=== PATIENT | female | born 1980 | race African-American/Black ===

== ENCOUNTER 2017-08-05 12:35 | Emergency (ER) | payer MEDICAID ==
[~2017-08-05] VITALS: Ht 162.6 cm; Wt 83.0 kg
[2017-08-05 12:38] VITALS: BP 137/79
[2017-08-05] MEDS ORDERED: ONDANSETRON ODT 4 MG ONE (13:51)
[2017-08-05] MEDS ORDERED: KETOROLAC 30 MG/1 ML ONE (13:51)
[2017-08-05] MEDS ORDERED: ONDANSETRON ODT 4 MG PO ONE (14:00)
[2017-08-05] MEDS ORDERED: KETOROLAC 30 MG/1 ML IM ONE (14:00)
[2017-08-05] MEDS ORDERED: OXYcodone/APAP 5/325MG TABLET ONE (14:29)
[2017-08-05] MEDS ORDERED: OXYcodone/APAP 5/325MG TABLET PO ONE (14:30)
== END 2017-08-05 14:36 | disposition home or self-care (01) ==
LOC: ED 14:20
DX: M54.9 Dorsalgia, unspecified (principal)
CPT/HCPCS: 81003; 96372; 99283; J1885

== ENCOUNTER 2018-06-20 16:25 | Inpatient (IN) | payer MEDICAID ==
[~2018-06-20] VITALS: Ht 162.6 cm; Wt 71.2 kg
[2018-06-20 16:55] LABS: MICROSCOPIC NOT IND
[2018-06-20 17:09] LABS: CULTURE INDICATED? NO
[2018-06-20] MEDS ORDERED: GABA-827 PO (17:09)
[2018-06-20] MEDS ORDERED: IBUP-1623 PO (17:10)
[2018-06-20] MEDS ORDERED: ONDA4TAB10 PO (17:11)
[2018-06-20] MEDS ORDERED: AMIT10TA PO (17:11)
[2018-06-20] MEDS ORDERED: CEFTRIAXONE 250 MG IM ONE (18:00)
[2018-06-20] MEDS ORDERED: KETOROLAC 30 MG/1 ML IVPush ONE (18:00)
[2018-06-20] MEDS ORDERED: ONDANSETRON 2MG/ML, 2ML IVPush ONE (18:00)
[2018-06-20] MEDS ORDERED: FAMOTIDINE 20 MG/2 ML IVP ONE (18:00)
[2018-06-20] MEDS ORDERED: AZITHROMYCIN 500 MG TABLET PO ONE (18:00)
[2018-06-20] MEDS ORDERED: ONDANSETRON ODT 4 MG ONE (18:01)
[2018-06-20] MEDS ORDERED: FAMOTIDINE 20 MG TABLET ONE (18:01)
[2018-06-20] MEDS ORDERED: AZITHROMYCIN 500 MG TABLET ONE (18:01)
[2018-06-20] MEDS ORDERED: KETOROLAC 30 MG/1 ML ONE ×2 (18:01→18:06)
[2018-06-20] MEDS ORDERED: CEFTRIAXONE 250 MG ONE (18:01)
[2018-06-20 18:24] LABS: ALBUMIN 3.8 g/dL (3.4-5.0); ANION GAP 7 mmol/L (5-15); CALCIUM 8.4 mg/dL (8.5-10.1); CHLORIDE 108 mmol/L (98-107)
[2018-06-20 18:27] LABS: ALANINE AMINOTRANSFERASE 40 U/L (12-78); ALKALINE PHOSPHATASE 95 U/L (45-117); BILIRUBIN,TOTAL 0.4 mg/dL (0.2-1.0); CREATININE 1.13 mg/dL (0.55-1.02)
[2018-06-20] MEDS ORDERED: FAMOTIDINE 20 MG TABLET PO ONE (18:30)
[2018-06-20] MEDS ORDERED: ONDANSETRON ODT 4 MG PO ONE (18:30)
[2018-06-20] MEDS ORDERED: KETOROLAC 30 MG/1 ML IM ONE (18:30)
[2018-06-20 18:35] LABS: BASOPHILS # (AUTO) 0.03 x10^3/uL (0-0.1); BASOPHILS % (AUTO) 0 % (0-1); EOSINOPHILS # (AUTO) 0.73 x10^3/uL (0-0.4); EOSINOPHILS % (AUTO) 10 % (1-7); LYMPHOCYTES % (AUTO) 35 % (22-44); MD NO; MEAN CORPUSCULAR HEMOGLOBIN 30.2 pg (27.0-34.8); MEAN CORPUSCULAR HGB CONC 33.3 g/dL (32.4-35.8); MEAN CORPUSCULAR VOLUME 90.6 fL (80-100); MEAN PLATELET VOLUME 9.2 fL (7.4-10.4); MONOCYTES # (AUTO) 0.37 x10^3/uL (0.2-0.8); MONOCYTES % (AUTO) 5 % (2-9); NEUTROPHILS # (AUTO) 3.79 x10^3/uL (1.8-6.8); NEUTROPHILS % (AUTO) 50 % (42-75); PLATELET COUNT 322 x10^3/uL (130-400); RED BLOOD COUNT 4.09 x10^6/uL (3.82-5.3); RED CELL DISTRIBUTION WIDTH 13.2 % (9.6-15.2)
[2018-06-20 19:09] LABS: CLUE CELLS NONE SEEN (NONE SEEN); WET PREP WBCS FEW (FEW)
[2018-06-20] MEDS ORDERED: MORPHINE SULFATE 4 MG/ML, 1ML IVPush PRN (19:30)
[2018-06-20] MEDS ORDERED: SODIUM CHLORIDE FLUSH 10ML SYR IVF ONE (19:30)
[2018-06-20] MEDS ORDERED: FLUCONAZOLE 100 MG TABLET PO ONE (19:30)
[2018-06-20] MEDS ORDERED: metroNIDAZOLE 500 MG TABLET PO ONE (19:30)
[2018-06-20] MEDS ORDERED: FLUCONAZOLE 100 MG TABLET ONE (19:50)
[2018-06-20] MEDS ORDERED: hydrALAzine 20 MG/ML, 1ML IVPush PRN (20:00)
[2018-06-20] MEDS ORDERED: TRAZODONE 50MG TABLET PO PRN (20:00)
[2018-06-20] MEDS ORDERED: ACETAMINOPHEN 325 MG TABLET PO PRN (20:00)
[2018-06-20] MEDS ORDERED: DOXYCYCLINE 100 MG in DEXTROSE 5% 250 ML IV SCH (20:00)
[2018-06-20] MEDS ORDERED: MICONAZOLE 7 VAG. CRM 2%, 45GM VG SCH (21:00)
[2018-06-20 21:09] VITALS: BP 132/93
[2018-06-20] MEDS ORDERED: HYDROcodone/APAP 5/325 TABLET PO PRN (21:30)
[2018-06-20] MEDS: DOXYCYCLINE 100MG CAP PO SCH (21:32)
[2018-06-20] MEDS: GABAPENTIN 100 MG CAPSULE PO SCH (21:33)
[2018-06-21] MEDS: KETOROLAC 30 MG/1 ML IV PRN ×2 (00:22→10:33)
[2018-06-21 01:39] VITALS: BP 120/80
[2018-06-21] MEDS: GABAPENTIN 100 MG CAPSULE PO SCH ×3 (06:41→10:34)
[2018-06-21 08:00] VITALS: BP 104/72
[2018-06-21] MEDS ORDERED: CEFOTETAN PMX 2GM/50ML 50 ML IV SCH (09:00)
[2018-06-21] MEDS ORDERED: ONDANSETRON ODT 4 MG PO SCH (09:00)
[2018-06-21] MEDS: DOXYCYCLINE 100MG CAP PO SCH (10:40)
[2018-06-21] MEDS ORDERED: FLUC150T2 PO (11:09)
[2018-06-21] MEDS ORDERED: METR500T8 PO (11:09)
[2018-06-21] MEDS ORDERED: DOXY100C2 PO (11:09)
== END 2018-06-21 12:31 | disposition home or self-care (01) | DRG 759 ==
LOC: ED 17:38 → EDIP 19:17 → 4NOR 20:40 → DCLOUNGE 06-21 12:12
PROVIDERS: ADMIT Family Medicine; ATTEND Family Medicine
DX: N73.0 Acute parametritis and pelvic cellulitis (principal); M79.7 Fibromyalgia; F41.1 Generalized anxiety disorder; B37.9 Candidiasis, unspecified; G89.29 Other chronic pain; F32.9 Major depressive disorder, single episode, unspecified; Z87.891 Personal history of nicotine dependence; Z98.51 Tubal ligation status
CPT/HCPCS: 36415; 80053; 81003; 81025; 83690; 85025; 87210; 87491; 87591; 87808; 96372; 99285; G0378; J0696; J1885; Q0162; S0074

== ENCOUNTER 2019-03-21 12:25 | Emergency (ER) | payer MEDICAID ==
[~2019-03-21] VITALS: Ht 162.6 cm; Wt 77.8 kg
[2019-03-21 12:39] VITALS: BP 113/68
== END 2019-03-21 13:38 | disposition home or self-care (01) ==
LOC: ED 13:30
DX: G56.01 Carpal tunnel syndrome, right upper limb (principal); F41.1 Generalized anxiety disorder; F32.9 Major depressive disorder, single episode, unspecified
CPT/HCPCS: 99283

== ENCOUNTER 2019-07-20 19:26 | Emergency (ER) | payer MEDICAID ==
[~2019-07-20] VITALS: Ht 162.6 cm; Wt 75.3 kg
[~2019-07-20 19:26] MED LIST: AMIT10TA PO; DOXY100C2 PO; FLUC150T2 PO; GABA-827 PO; IBUP-1623 PO; METR-90 PO; ONDA4TAB10 PO
[2019-07-20] MEDS ORDERED: ONDANSETRON 2MG/ML, 2ML IVPush ONE (20:00)
[2019-07-20] MEDS ORDERED: MORPHINE SULFATE 4 MG/ML, 1ML IVPush PRN (20:00)
[2019-07-20] MEDS ORDERED: SODIUM CHLORIDE FLUSH 10ML SYR IVF ONE (20:00)
[2019-07-20 20:09] LABS: ALANINE AMINOTRANSFERASE 26 U/L (12-78); ALBUMIN 3.8 g/dL (3.4-5.0); ANION GAP 5 mmol/L (5-15); CALCIUM 8.7 mg/dL (8.5-10.1); CHLORIDE 110 mmol/L (98-107); CREATININE 0.95 mg/dL (0.55-1.02)
[2019-07-20 20:14] LABS: ALKALINE PHOSPHATASE 92 U/L (45-117); BILIRUBIN,TOTAL 0.3 mg/dL (0.2-1.0); TOTAL PROTEIN 7.7 g/dL (6.4-8.2)
[2019-07-20 20:15] LABS: MEAN CORPUSCULAR HEMOGLOBIN 30.2 pg (27.0-34.8); MEAN CORPUSCULAR HGB CONC 31.9 g/dL (32.4-35.8); MEAN CORPUSCULAR VOLUME 94.6 fL (80-100); MEAN PLATELET VOLUME 8.8 fL (7.4-10.4); PLATELET COUNT 392 x10^3/uL (130-400); RED BLOOD COUNT 4.11 x10^6/uL (3.82-5.3); RED CELL DISTRIBUTION WIDTH 14.5 % (9.6-15.2)
[2019-07-20 20:18] LABS: MD SCAN
[2019-07-20 20:19] LABS: MICROSCOPIC NOT IND
[2019-07-20 20:19] LABS: BASOPHILS # (AUTO) 0.04 x10^3/uL (0-0.1); BASOPHILS % (AUTO) 1 % (0-1); EOSINOPHILS # (AUTO) 0.26 x10^3/uL (0-0.4); EOSINOPHILS % (AUTO) 4 % (1-7); LYMPHOCYTES # (AUTO) 2.78 x10^3/uL (1-3.4); LYMPHOCYTES % (AUTO) 39 % (22-44); MONOCYTES # (AUTO) 0.34 x10^3/uL (0.2-0.8); MONOCYTES % (AUTO) 5 % (2-9); NEUTROPHILS # (AUTO) 3.65 x10^3/uL (1.8-6.8); NEUTROPHILS % (AUTO) 52 % (42-75)
[2019-07-20 20:27] LABS: CULTURE INDICATED? NO
[2019-07-20] MEDS ORDERED: ONDANSETRON 2MG/ML, 2ML ONE (20:35)
[2019-07-20] MEDS ORDERED: MORPHINE SULFATE 4 MG/ML, 1ML ONE (20:35)
--- NOTE | 2019-07-20 20:42 | NUR ---
IV STARTED AND PT MEDICATED ORDERED AND NOW TO CT SCAN
[2019-07-20] MEDS ORDERED: OMNIPAQUE 350 MG/ML, 100ML BOTTLE ONE (20:53)
--- NOTE | 2019-07-20 21:05 | NUR ---
Patient back into room, reports flank pain. Patient has a history of kidney stones, but feels this is more abdominal related. Patient is alert oriented, pleasant and answers questions concisely and clearly. Assessment by RN and provider complete, flight technician to bedside and labs drawn. RN returned to bedside to inform of medication and ct with contrast order. Agreeable to iv placement. primary RN attempted x2, blood return but would not flush. Task RN placed ultrasound guided and medicated patient. Patient transported to CT. Just returned. Resting comfortably, reattached to monitor and VSS.
--- NOTE | 2019-07-20 21:22 | NUR ---
RN to bedside, patient resting comfortably, CT read back, needs recheck by MD for disposition
[2019-07-20 22:09] VITALS: BP 110/74
--- NOTE | 2019-07-20 22:12 | NUR ---
list of PCP list given to pt.
== END 2019-07-20 22:15 | disposition home or self-care (01) ==
LOC: ED 21:59
DX: D25.1 Intramural leiomyoma of uterus (principal); F17.200 Nicotine dependence, unspecified, uncomplicated
CPT/HCPCS: 36415; 74177; 80053; 81003; 83690; 84703; 85025; 96374; 96375; 99284; J2270; J2405; Q9967

== ENCOUNTER 2019-07-22 08:45 | Emergency (ER) | payer MEDICAID ==
[~2019-07-22] VITALS: Ht 162.6 cm; Wt 74.1 kg
[2019-07-22 08:52] VITALS: BP 138/89
[2019-07-22] MEDS ORDERED: MAALOX/HYOSCYAMINE/LIDOCAINE 45 ML BTL PO ONE ×2 (09:30→10:30)
[2019-07-22] MEDS ORDERED: ONDANSETRON 2MG/ML, 2ML IVPush ONE (09:30)
[2019-07-22] MEDS ORDERED: FAMOTIDINE 20 MG/2 ML IV ONE (09:30)
[2019-07-22] MEDS ORDERED: SODIUM CHLORIDE 0.9% 1,000ML IVBOLUS ONE (09:30)
[2019-07-22] MEDS ORDERED: SODIUM CHLORIDE FLUSH 10ML SYR IVF ONE (09:30)
--- NOTE | 2019-07-22 09:53 | NUR ---
pt to ultrasound at this time. IV supplies at bedside for use upon return to room.
[2019-07-22 10:07] LABS: ALANINE AMINOTRANSFERASE 26 U/L (12-78); ALBUMIN 4.1 g/dL (3.4-5.0); ANION GAP 8 mmol/L (5-15); CALCIUM 8.8 mg/dL (8.5-10.1); CHLORIDE 108 mmol/L (98-107); CREATININE 0.88 mg/dL (0.55-1.02)
[2019-07-22 10:12] LABS: ALKALINE PHOSPHATASE 87 U/L (45-117); TOTAL PROTEIN 8.1 g/dL (6.4-8.2)
[2019-07-22] MEDS ORDERED: ONDANSETRON 2MG/ML, 2ML ONE (10:36)
[2019-07-22] MEDS ORDERED: MAALOX/HYOSCYAMINE/LIDOCAINE 45 ML BTL ONE (10:36)
[2019-07-22] MEDS ORDERED: FAMOTIDINE 20 MG/2 ML ONE (10:36)
[2019-07-22 10:38] LABS: BASOPHILS # (AUTO) 0.03 x10^3/uL (0-0.1); BASOPHILS % (AUTO) 1 % (0-1); EOSINOPHILS % (AUTO) 2 % (1-7); LYMPHOCYTES # (AUTO) 1.84 x10^3/uL (1-3.4); LYMPHOCYTES % (AUTO) 42 % (22-44); MD NO; MEAN CORPUSCULAR HEMOGLOBIN 30.8 pg (27.0-34.8); MEAN CORPUSCULAR HGB CONC 32.7 g/dL (32.4-35.8); MEAN CORPUSCULAR VOLUME 94.1 fL (80-100); MEAN PLATELET VOLUME 9.2 fL (7.4-10.4); MONOCYTES # (AUTO) 0.22 x10^3/uL (0.2-0.8); MONOCYTES % (AUTO) 5 % (2-9); NEUTROPHILS # (AUTO) 2.21 x10^3/uL (1.8-6.8); NEUTROPHILS % (AUTO) 50 % (42-75); PLATELET COUNT 356 x10^3/uL (130-400); RED BLOOD COUNT 4.46 x10^6/uL (3.82-5.3); RED CELL DISTRIBUTION WIDTH 14.3 % (9.6-15.2)
[2019-07-22] MEDS ORDERED: FAMOTIDINE 20 MG TABLET PO ONE (11:00)
[2019-07-22] MEDS ORDERED: ONDANSETRON ODT 8 MG PO ONE (11:00)
[2019-07-22] MEDS ORDERED: ONDANSETRON ODT 4 MG ONE (11:07)
[2019-07-22] MEDS ORDERED: FAMOTIDINE 20 MG TABLET ONE (11:07)
== END 2019-07-22 11:41 | disposition home or self-care (01) ==
LOC: ED 09:33
DX: G89.29 Other chronic pain (principal); R10.84 Generalized abdominal pain; R11.2 Nausea with vomiting, unspecified; R19.7 Diarrhea, unspecified; D25.1 Intramural leiomyoma of uterus
CPT/HCPCS: 36415; 76700; 80053; 83690; 84703; 85025; 93005; 99284; Q0162